=== PATIENT | female | born 1970 | race Caucasian/White ===

== ENCOUNTER 2018-10-08 10:52 | Day surgery (SDC) | payer BC ==
[~2018-10-08 10:52] MED LIST: CEFAZOLIN 1 GM INJ; SEVOFLURANE 15 MIN
[2018-10-08] MEDS ORDERED: FENTAnyl 50 MCG/ML VIAL IV ×2 (14:00)
[2018-10-08] MEDS ORDERED: MEPERIDINE 25 MG INJ IV (14:00)
[2018-10-08] MEDS ORDERED: ONDANSETRON 4 MG INJ IV (14:00)
[2018-10-08] MEDS ORDERED: HYDROmorphONE 1 MG/5 ML IV SYRINGE IV ×2 (14:00)
[2018-10-08] MEDS ORDERED: DIPHENHYDRAMINE 50 MG INJ IV (14:00)
[2018-10-08] MEDS ORDERED: FENTAnyl 50 MCG/ML VIAL (14:09)
[2018-10-08] MEDS ORDERED: METOCLOPRAMIDE 10 MG INJ (14:10)
[2018-10-08] MEDS ORDERED: MIDAZOLAM 1 MG/ML 2 ML INJ (14:10)
[2018-10-08] MEDS ORDERED: PROPOFOL 20 ML (14:11)
[2018-10-08] MEDS ORDERED: ACETAMINOPHEN 325 MG TAB PO (14:30)
[2018-10-08] MEDS ORDERED: LIDOCAINE 2% (SDV) 5 ML INJ (15:59)
[2018-10-10] MEDS ORDERED: INFLUENZA VIRUS VACCINE 0.5 ML (DISPENSING) IM* (10:00)
== END 2018-10-08 17:22 | disposition home or self-care (01) ==
LOC: SDS 10:52
DX: R93.89 Abnormal findings on diagnostic imaging of other specified body structures (principal); N92.0 Excessive and frequent menstruation with regular cycle; E11.9 Type 2 diabetes mellitus without complications; I10 Essential (primary) hypertension
CPT/HCPCS: 58120; 82962; 84703; 86850; 86900; 86901; 88305